=== PATIENT | female | born 1950 | race Caucasian/White ===

== ENCOUNTER 2016-04-23 09:24 | Day surgery (SDC) | payer BC ==
[2016-04-21 08:36] VITALS: BMI 24.4
[~2016-04-23 09:24] MED LIST: DEXAMETHASONE SOD PHOSPHATE 10 MG/ML 1 ML VIAL IV ONE; FAMOTIDINE 20 MG/2 ML VIAL IV ONE; HYDROmorphone 1 MG/ML 1 ML SYRINGE IVP PRN; LACTATED RINGERS 1,000 ML IV SCH; LIDOCAINE 1% 20 ML VIAL (10MG/ML) FOR IV START INTRADERMA PRN; MIDAZOLAM 2 MG/2 ML VIAL IV PRN; ONDANSETRON 4 MG/2 ML VIAL IVP ONE; SCOPOLAMINE 1.5MG/72HR PATCH TRANSDERM ONE; ceFAZolin 2 GM in SODIUM CHLORIDE 0.9% 100 ML IVPB ONE; metroNIDAZOLE-NS PMX 500 MG in SALINE 1 100ML.BAG IVPB ONE
[2016-04-23] MEDS ORDERED: LIDOCAINE 1% 20 ML VIAL (10MG/ML) FOR IV START INTRADERMA ONE (10:01)
[2016-04-23] MEDS ORDERED: LACTATED RINGERS 1,000 ML IV ONE ×2 (10:02→13:29)
[2016-04-23] MEDS ORDERED: MIDAZOLAM 2 MG/2 ML VIAL ONE (12:09)
[2016-04-23] MEDS ORDERED: fentaNYL (PF) 50 MCG/ML 2 ML AMP ONE (12:09)
[2016-04-23] MEDS ORDERED: SUCCINYLCHOLINE CHLORIDE 100 MG/5 ML SYR IV ONE (12:09)
[2016-04-23] MEDS ORDERED: ePHEDrine 50 MG/ML 1 ML AMP ONE (12:09)
[2016-04-23] MEDS ORDERED: LIDOCAINE 1% INJ 10MG/ML (20 ML MDV) ONE (12:09)
[2016-04-23] MEDS ORDERED: DEXAMETHASONE SOD PHOS (MDV) 100 MG/10 ML VIAL ONE (12:09)
[2016-04-23] MEDS ORDERED: ROCURONIUM BROMIDE 10 MG/ML 10 ML VIAL IV ONE (12:09)
[2016-04-23] MEDS ORDERED: GLYCOPYRROLATE 0.2 MG/ML 2 ML VIAL ONE (12:09)
[2016-04-23] MEDS ORDERED: NEOSTIGMINE 1 MG/ML 10 ML VIAL ONE (12:09)
[2016-04-23] MEDS ORDERED: PROPOFOL 10 MG/ML 20 ML VIAL IV ONE (12:09)
[2016-04-23] MEDS ORDERED: LIDOCAINE 1%-EPI 1:100,000 20 ML VIAL SQ ONE (12:52)
[2016-04-23] MEDS ORDERED: OXYMETAZOLINE 0.05% NASL SPRAY 15 ML EA NOSTRIL ONE (12:52)
[2016-04-23] MEDS ORDERED: FLUORESCEIN STRIPS 1 MG STRIP MISCELLANE ONE (12:52)
[2016-04-23] MEDS ORDERED: EPINEPHrine 1 MG/ML (MDV) 30 ML VIAL TOPICAL ONE (12:55)
[2016-04-23 13:50] VITALS: TEMP 97.6
--- NOTE | 2016-04-23 14:07 | P.OP ---
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 She had a sinus lift in 2011 and fortunately this infection was persistent. She has a dehiscence along the floor the maxillary sinus just above the graft and after long discussion, we decided to proceed forward with a debridement a bone graft and the sealant placement. Better ventilation of the right maxillary sinus was also recommended and a supraturbinal maxillary antrostomy was agreed upon. A consent was obtained and all risks, benefits, and alternative therapies were discussed in detail. Consent was obtained and all questions were answered. Operative Findings: Necrotic bone of the floor the right maxillary sinus was encountered which was debrided completely. A bone graft Was placed over that area was sealed with FloSeal. A right supraturbinal max antrostomy was performed for better ventilation of the right maxillary sinus. Description of Procedure: This patient was taken to the operative room and placed in the supine position. A general inhalation anesthetic was administered the patient by mask and subsequently intubated with a cuffed endotracheal tube by the department of anesthesia with a functioning IV line in place. The patient was monitored throughout the entire case by the department of anesthesia. The gingival labial sulcus was injected with lidocaine 1% with epinephrine 1 100,000. An incision was made and dissection was carried to the canine fossa. We entered the right maxillary sinus with the canine fossa and with use of Grant the opening was widened. This allowed us to visualize the floor the maxillary sinus on the right side completely. We examine the area in the posterior portion of the old graft appeared solid but the anterior portion was very necrotic soft. We debrided this bone and necrotic material completely until we found solid viable bone. After this bone material was removed we harvest bone from the anterior face of the maxillary sinus and use that as a Over this area. We then filled the floor the maxillary sinus with FloSeal and seal this area completely. The incision was closed with a 4-0 chromic gut in a running locking fashion. We then entered the nose on the right side were a supraturbinal maxillary antrostomy was performed with a microdebrider. We open the right maxillary sinus nice and widened and a follow-up is scheduled for 1 week the patient is to contact me if any problems should arise.
[2016-04-23 14:44] VITALS: RESP 16
[2016-04-23] MEDS ORDERED: HYDROcodone/APAP 5-325MG 1 EACH TAB PO ONE (15:05)
[2016-04-23 15:33] VITALS: BP 111/55; PULSE 94
== END 2016-04-23 15:48 | disposition home or self-care (01) ==
LOC: OR 09:24
PROVIDERS: ATTEND Otolaryngology
DX: T84.328A Displacement of other bone devices, implants and grafts, initial encounter (principal); T86.832 Bone graft infection; M87.9 Osteonecrosis, unspecified; J32.0 Chronic maxillary sinusitis; D64.9 Anemia, unspecified; E78.00 Pure hypercholesterolemia, unspecified; E78.5 Hyperlipidemia, unspecified; E07.9 Disorder of thyroid, unspecified; Z87.891 Personal history of nicotine dependence; Z79.899 Other long term (current) drug therapy; Y79.3 Surgical instruments, materials and orthopedic devices (including sutures) associated with adverse incidents
CPT/HCPCS: 31030; 21210; 11044; 88305; 88311; C1762; J0171; J2250; J1100 ×2; J2710; J0690; J2405; J2001; J3010; J0330; J2704